=== PATIENT | female | born 1960 | race Caucasian/White ===

== ENCOUNTER → 2019-01-10 10:53 | Outpatient (CLI) | payer MEDICARE | END | disposition home or self-care (01) | LOC: D.HCCARDIO 10:53 | PROVIDERS: ATTEND Internal Medicine Cardiovascular Disease | DX: I20.9 Angina pectoris, unspecified (principal) ==

== ENCOUNTER → 2019-12-23 15:45 | Outpatient (CLI) | payer MEDICARE | END | disposition home or self-care (01) | LOC: D.RAD 15:45 | PROVIDERS: ATTEND Nurse Practitioner Family | DX: R05 Cough (principal) ==